=== PATIENT | female | born 1935 | race Two or more races ===

== ENCOUNTER 2017-01-27 14:38 | Inpatient (IN) | payer MEDICARE, BC, OTHER ==
[~2017-01-27] VITALS: Ht 154.9 cm; Wt 56.2 kg
[2017-02-05] MEDS ORDERED: METF500T PO (10:48)
[2017-02-05] MEDS ORDERED: PRIL20CA9 PO (10:48)
[2017-02-05] MEDS ORDERED: TEMA30CA PO (10:48)
[2017-02-05] MEDS ORDERED: GABA100C4 PO (10:48)
[2017-02-05] MEDS ORDERED: ALEN1TAB48 PO (10:48)
[2017-02-05] MEDS ORDERED: LOSA50TA PO (10:48)
[2017-02-05] MEDS ORDERED: COMB0.2S EACH EYE (10:48)
[2017-02-05] MEDS ORDERED: HYDR-3516 PO (10:48)
--- NOTE | 2017-02-18 23:44 | MH ---
cc: ANDREW OSMAN DATE OF ADMISSION: 02/19/2017 ADMITTING DIAGNOSIS: Lumbar spinal stenosis with instability. HISTORY OF PRESENT ILLNESS: This patient is an 81 year-old patient with significant back, hip and leg pain. Investigative study shows evidence of a high-grade stenosis at L4-L5 and significant foraminal stenosis to the right L5-S1. The patient developed weakness into the leg. There is evidence of instability at L4 5. We anticipate significant instability at L5-S1 related to the decompression. The patient now presents for laminectomy and fusion. Despite conservative care the patient is painful and symptomatic. This patient presents for surgical treatment. PAST MEDICAL HISTORY: See attached notes. SOCIAL HISTORY, FAMILY HISTORY, AND REVIEW OF SYSTEMS: See attached notes. PHYSICAL EXAMINATION: GENERAL: The patient is an 81 year-old female with significant back, hip and leg pain. HEENT: Normocephalic, atraumatic. Pupils equal, round, reactive to light and accommodation. Extraocular motions intact. NECK: Supple. CHEST: Clear. HEART: Regular rate and rhythm. ABDOMEN: Soft, nontender, normoactive bowel sounds. MUSCULOSKELETAL EXAMINATION: Thoracolumbar spine, restricted motion, pain with range of motion, straight leg raise positive on the right, negative on the left. Motor examination shows weakness in the right extensor hallucis longus. IMPRESSION: 1. Lumbar spinal stenosis L4-L5 and L5-S1. 2. Spondylolisthesis L4-L5. 3. Foraminal stenosis right L5-S1. 4. Herniated nucleus pulposus L5-S1, right, foraminal. 5. Anticipated instability L5-S1, status post decompression PLAN: Bilateral lumbar laminectomy L4-L5, lateral recess decompression, right laminectomy L5-S1, foraminal decompression, subtotal facet resection, posterior spinal fusion L4-S1, interbody cage, bone grafting. CONSENT: There are risks with surgery including infection, bleeding, loss of motion, continued pain, need for further surgery, neurologic or vascular injury, etc. The patient understands these issues and wishes to press on with surgery as outlined above. Andrew Osman MD [facility] [place] 11:18 PM /11:28 PM MTDFabien
[2017-02-19] MEDS ORDERED: ceFAZolin 2 GM PREMIX 50 ML IV SCH (08:15)
[2017-02-19] MEDS ORDERED: VANCOMYCIN 1000 MG/NS 250 ML (for <70 kg) IV SCH ×2 (08:15)
[2017-02-19] MEDS ORDERED: INSULIN HUMAN REGULAR 1,000 UNITS/10 ML VIAL SQ PRN (08:15)
[2017-02-19] MEDS ORDERED: METOPROLOL TARTRATE 25 MG TAB PO PRN (08:15)
[2017-02-19] MEDS: POVIDONE IODINE 7.5% SCRUB 118 ML BOTTLE TOP SCH (08:15)
[2017-02-19] MEDS: SODIUM CHLORID 0.9% 500 ML IV SCH ×2 (08:15→23:56)
[2017-02-19] MEDS: LACTATED RINGER'S 1000 ML IV SCH (08:20)
[2017-02-19 08:41] VITALS: BP 191/94; PULSE 70; RESP 16; TEMP 98.4; O2SAT 100
[2017-02-19] MEDS ORDERED: MIDAZOLAM HCL 2 MG/2 ML VIAL ONE (10:20)
[2017-02-19] MEDS ORDERED: FAMOTIDINE 20 MG/2 ML VIAL ONE (10:21)
[2017-02-19] MEDS ORDERED: fentaNYL CITRATE 250 MCG/5 ML AMP ONE (10:21)
[2017-02-19] MEDS ORDERED: GENTAMICIN SULFATE 80 MG/2 ML VIAL ONE (10:24)
[2017-02-19] MEDS ORDERED: ACETAMINOPHEN 1000 MG/100 ML VIAL IV ONE (10:45)
[2017-02-19] MEDS ORDERED: PROPOFOL 200 MG/20 ML AMP IV ONE (12:00)
[2017-02-19] MEDS ORDERED: ONDANSETRON HCL 4 MG/2 ML VIAL IV PUSH ONE (12:00)
[2017-02-19] MEDS ORDERED: PHENYLEPH/NS 1000 MCG/10 ML SYR IV ONE (12:00)
[2017-02-19] MEDS ORDERED: LACTATED RINGER'S 1000 ML INJ 1,000 ML IV ONE (12:00)
[2017-02-19] MEDS ORDERED: OXYC-392 PO (14:07)
--- NOTE | 2017-02-19 14:14 | PD.OP ---
cc: Bao Machuca MD Operative Report Date of Surgery: Feb 19, 2017 Preoperative Diagnosis: Lumbar spinal stenosis L4 5. Herniated nucleus pulposus L5-S1, right, foraminal. Right lumbosacral radiculopathy. Discogenic low back pain. Lumbar instability, L5-S1, status post lumbar decompression. Lumbar instability, L4 5, spondylolisthesis, grade 1 Postoperative Diagnosis: Same Procedure: Bilateral lumbar laminectomy from the right L4, L5, lateral recess decompression. Lumbar laminectomy from the right L5-S1, subtotal facet resection, foraminal decompression, resection foraminal herniated nucleus pulposus. Posterior spinal fusion, lateral transverse process technique L4 to S1. Posterior spinal segmental instrumentation, L4 to S1. Posterior lateral interbody fusion L4 5 and L5-S1. Placement of interbody cages, L4 5 and L5-S1. Major bone grafting of the lumbar spine Anesthesia: Gen. Surgeon: Bao Machuca Sash Assembler(s): BRANDON Boyd Operation and Findings: EBL: 200 ml NOTE: Sierra Boyd PA-C was present for the entire surgical procedure as my embroidery assistant. In my medical opinion her skill and care was necessary for proper management of this patient INDICATIONS: Patient is an 81-year-old female involved in a trauma. The patient sustained a disc herniation into the foramen to the right at L5-S1. The patient has significant right L5 nerve root compromise. Also, studies shows evidence of nerve root compression at the L4 5 level. There is a mild spondylosis instability at that level associated with a remarkable discogenic changes. The patient had exhausted conservative care including physical therapy , medications, time, epidural steroid injections and nerve root injections. She is failed almost a year conservative care. She now presents for surgical treatment. INSTRUMENTATION: Cage: Staxx, expandable. Screws: Sulco PROCEDURE: The patient brought to the operating room and anesthetized the supine position. The patient positioned prone on the Vance frame on the Jude table. All pressure points are protected. The back was scrubbed with alcohol followed by Hibiclens followed by ChloraPrep and draped sterilely and antibiotics were given within a routine time window. A timeout was done. Lateral radiographic images used to identify the proper level for the procedure. Compared care for the preoperative studies. Skin markings were made anticipating surgical treatment. A right paramedian incision was made. The lamina and facet joint was exposed. We used the proper retractor was positioned over this region. The microscope was rolled into the field for visualization. A high-speed bur was used to take the lamina down and doing a subtotal facet resection. The exiting and crossing nerve roots were completely decompressed. A total discectomy was accomplished. The disc space was prepared. All cartilaginous material from the disc space was removed. There was moderate instability of the facet joint. Translational instability was noted. The decompression was very satisfactory. A combination of demineralized bone matrix and Nucel stem cells were mixed together on the back table.. These were injected into the disc space. The cage was then placed according to gas operator's recommendation and deployed. Position was satisfactory. Additional bone graft was placed into the disc space. We moved to the L5-S1 level. A paramedian incision was made and a midline fascial incision was made. A dilating system was placed down to the interlaminar space and held provisionally to the side of the table. A high- speed bur under the microscope was used to perform a bilateral laminectomy from the that side. A lateral recess decompression bilaterally was accomplished. A subtotal facet resection was accomplished. The crossing and exiting nerve roots were completely decompressed. There was a significant disc herniation into the foramen to the right side. This was resected. The L5 nerve root compression was relieved. An annulotomy was performed. A total discectomy was accomplished. All of the disc was removed from the disc space. The disc was then prepared for a cage. The bone graft was placed into the disc space between the operative level. A a Staxx cage placed close to midline at that level. There was no complication. The alignment was satisfactory. No significant bleeding was encountered. The wound was irrigated copiously. The fascia was closed with interrupted 0 Vicryl suture. The outer edge of the facet joint was identified and prepared. Under fluoroscopic images, a bur was used to gain entrance into the pedicle followed by placement of a blunt probe, an awl and placement of proper length screws. Each screw was charged with electric current there are no abnormal potentials registered in either lower extremity. A proper length jason was fitted and attached and tightened according to gas operator's recommendation. The wound was irrigated copiously. Bone grafting was placed along the lateral gutter in the region of the transverse process across this level. This was closed in layers with #1 Vicryl, 2-0 Vicryl and running intradermal 3-0 Vicryl followed by Steri-Strips and benzoin. On the contralateral side a separate exposure was made. The outer edge of the facet joints were identified. A bur was used to gain entrance into the pedicle followed by placement of a probe and proper length screws. Each screw was charged with electric current and no abnormal potentials registered in either lower extremity. A proper length jason was attached and positioned appropriately and tightened according to gas operator's recommendations. The wound was irrigated copiously. Bone graft placed along the transverse process across this level. It was closed in layers using #1 Vicryl, 2-0 Vicryl and running intradermal 3-0 Vicryl followed by Steri-Strips and benzoin. Intraoperative radiographs were obtained. No complication was appreciated. The patient had a sterile dressing applied. The patient was awakened and taken to recovery room in satisfactory condition. FINDINGS: There was evidence of moderate instability at the L4 5 level with significant lateral recess stenosis. L5-S1 level there was a disc herniation into the foramen to the right side creating significant L5 nerve root compression. Final construct was very satisfactory. No complication was appreciated. Bao Machuca MD Feb 19, 2017 14:14
[2017-02-19] MEDS ORDERED: ALUMINUM/MAGNESIUM/SIMETH 30 ML CUP PO PRN (14:15)
[2017-02-19] MEDS ORDERED: oxyCODONE/ACETAMINOPHEN 5 MG/325 MG TAB PO PRN (14:15)
[2017-02-19] MEDS ORDERED: MORPHINE SULFATE 8 MG/ML INJ IV PUSH PRN (14:15)
[2017-02-19] MEDS: LACTATED RINGER'S 1000 ML INJ 1,000 ML IV SCH (14:15)
[2017-02-19] MEDS ORDERED: SOD PHOSPHATE/SOD BIPHOSPHATE (ADULT) ENEMA 133ML PR PRN (14:15)
[2017-02-19] MEDS ORDERED: SODIUM CHLORIDE 0.9% FLUSH 5 ML FLUSH IVF PRN (14:15)
[2017-02-19] MEDS ORDERED: MORPHINE SULFATE 30 MG/30 ML PCA IV SCH (14:15)
[2017-02-19] MEDS ORDERED: BISACODYL 10 MG SUPP PR PRN (14:15)
[2017-02-19] MEDS ORDERED: NALOXONE HCL 0.4 MG/ML AMP IV PRN (14:15)
[2017-02-19] MEDS ORDERED: Post-op Orders (for Pharmacy) MISC XX ONE (14:15)
[2017-02-19] MEDS ORDERED: DO NOT ADM ANY ANTICOAGULANT DRUGS XX PRN (14:30)
[2017-02-19] MEDS ORDERED: *morphine SULFATE 8 MG/ML PERIprocedure ONLY ONE ×2 (15:02→15:09)
[2017-02-19] MEDS ORDERED: WALKER WHEELS/F1 MIS (15:07)
[2017-02-19] MEDS ORDERED: MISC-163 (15:07)
--- NOTE | 2017-02-19 15:08 | HHI.FF ---
Face to Face Verification Diagnosis: (1) Lumbar spinal stenosis (2) Lumbar spine instability (3) Degeneration of intervertebral disc of lumbar region Physical Therapy Gait training, Safety evaluation, Transfer training, bed to chair S/P Spinal Fusion: Gait training with walker, Weight bearing as tolerated, No twisting of torso, No bending Additional Instructions PT 5 days/wk for 1 week. WBAT w walker. Out of bed w brace time lock expert for 10- 12 weeks. Gait training / transfers. Nursing RN Days per Week: 5 x Week(s): 1 Nursing: Dressing changes Dressing Changes: Daily dressing change, 4x4s, Coverderm/Primapore Additional Instructions RN 5 days/wk for 1 week. Dry dressing changes daily w 4x4 and coverderm. Vitals assessment. I have seen patient Javan Mejias on 02/19/17. My clinical findings support the need for the requested home health care services because: Limited ability to care for self High risk of falls I certify that my clinical findings support that this patient is homebound because: Post-op weakness Unsteady gait/balance Kaycee Mendes Feb 19, 2017 15:08
--- NOTE | 2017-02-19 17:07 | RADRPT ---
EXAM DATE/TIME: 02/19/2017 13:53 [facility] COMPARISON: No previous studies available for comparison. INDICATIONS : Lumbar fusion, L4-5. MEDICAL HISTORY : Unobtainable. SURGICAL HISTORY : Unobtainable. ENCOUNTER: Initial ACUITY: 1 day PAIN SCORE: Non-responsive. LOCATION: Lumbar. FINDINGS: Fusion hardware is noted within the lowest three lumbar type vertebral bodies and appears to be in go od position. CONCLUSION: Status post posterior lumbar fusion within the lower lumbar spine as described above. Travon Urbano MD on February 19, 2017 at 17:02 Board Certified Radiologist. This report was verified electronically.
[2017-02-19] MEDS ORDERED: *ONDANSETRON 4 MG VIAL PERIprocedural Use ONLY ONE (18:52)
[2017-02-19 20:25] VITALS: BP 119/66; PULSE 73; RESP 17; TEMP 95.9; O2SAT 100
[2017-02-19] MEDS ORDERED: ZOLPIDEM TARTRATE 5 MG TAB PO PRN (21:00)
[2017-02-19] MEDS ORDERED: TEMAZEPAM 15 MG CAP PO PRN (21:00)
[2017-02-19] MEDS: SODIUM CHLORIDE 0.9% FLUSH 5 ML FLUSH IVF SCH (21:00)
[2017-02-19] MEDS: TIMOLOL MALEATE 0.5% OPHT SOLN 5 ML BTL EACH EYE SCH (21:39)
[2017-02-19] MEDS: GABAPENTIN 100 MG CAP PO SCH (21:39)
[2017-02-19] MEDS: BRIMONIDINE TARTRATE 0.2% OPHT SOLN 5 ML BTL EACH EYE SCH (21:39)
[2017-02-19 22:08] VITALS: O2SAT 100
[2017-02-19] MEDS: PCA - TOTAL MG MORPHINE DELIVERED PER SHIFT SCH (22:38)
[2017-02-20] VITALS (7 sets, daily range): BP systolic 113–139; BP diastolic 57–69; PULSE 66–84; RESP 16–17; TEMP 96.9–98.6; O2SAT 84–100
[2017-02-20] MEDS: LACTATED RINGER'S 1000 ML INJ 1,000 ML IV SCH ×3 (02:19→20:40)
[2017-02-20] MEDS: ONDANSETRON HCL 4 MG/2 ML VIAL IV PRN ×2 (04:43→10:31)
[2017-02-20] MEDS: PCA - TOTAL MG MORPHINE DELIVERED PER SHIFT SCH (04:46)
[2017-02-20 05:36] LABS: HEMATOCRIT 29.1 % (35.0-46.0); REVIEW FLAG FINAL
--- NOTE | 2017-02-20 07:56 | HHI.DCPOC ---
Discharge Care Plan Diagnosis: (1) Lumbar spinal stenosis (2) Lumbar spine instability (3) Degeneration of intervertebral disc of lumbar region Your Health Problems Are: Incision/Drains Goals to Promote Your Health * To prevent worsening of your condition and complications * To maintain your health at the optimal level Directions to Meet Your Goals Take your medications as prescribed Follow your dietary instruction Follow activity as directed Keep your appointments as scheduled Take your immunizations and boosters as scheduled If your symptoms worsen call your PCP, if no PCP go to Urgent Care Center or Emergency Room Smoking is Dangerous to Your Health. Avoid second hand smoke Call the 24-hour hour crisis hotline for domestic abuse at Kaycee Mendes Feb 20, 2017 07:56
--- NOTE | 2017-02-20 07:57 | HHI.DS ---
Discharge Summary Admission Date Feb 19, 2017 at 07:34 Discharge Date: Feb 21, 2017 Admitting Diagnosis see below Diagnosis: (1) Lumbar spinal stenosis Diagnosis: Principal (2) Lumbar spine instability Diagnosis: Principal (3) Degeneration of intervertebral disc of lumbar region Diagnosis: Principal Procedures Lumbar laminectomy L45, L5S1, Posterior fusion L4-S1, interbody cages L45, L5S1 , bone graft Brief History This is a 81 year old female patient..right leg pain... CBC/BMP: 02/20/17 0448 02/20/17 0448 Significant Findings Laboratory Tests Test 02/20/17 04:48 Hemoglobin 9.6 GM/DL (11.6-15.3) Hematocrit 29.1 % (35.0-46.0) Estimat Glomerular Filtration 72 ML/MIN (>89) Rate Hospital Course Surgical treatment was performed on the day of admission without complication. She recovered well in PACU and was transferred to the orthopaedic floor. Pain was controlled with IV and oral medications. She was compliant with physical therapy, her lumbar brace and all restrictions. After 2 days she was found to be stable and discharged home with home health care. She was instructed to continue her lumbar brace for an additional 10-12 weeks, continue her pain medication as needed and to pursue a high fiber diet for 3-5 days postop. Pt Condition on Discharge: Stable Discharge Disposition: Disch w/ Home Health Serv Discharge Instructions Diet Instructions: Diabetic Diet, High Fiber Diet Activities You Can Perform: Weight Bearing as Bessie, See Additionl Instruction Activities to Avoid: Strenuous Activity Additional Activity Instruc.: Brace to lumbar spine when out of bed New Medications: 3-in-1 Bedside Toilet (3-in-1 Bedside Toilet) 1 Mis Mis 1 EA .ROUTE DIRECTED #1 EA Oxycodone (Oxycodone) 5 Mg Tab 5 MG PO Q4H PRN PAIN #50 Ref 0 TAB Walker with Front Wheels (Walker with Front Wheels) 1 Mis Mis 1 EA .ROUTE DIRECTED #1 Ref 0 EA Continued Medications: Alendronate (Alendronate) 70 Mg Tab 70 MG PO Q7D Osteporosis Treatment #4 Ref 0 TAB Brimonidine-Timolol Opth Drops (Combigan Opth Drops) 0.2-0.5% Soln 1 DROP EACH EYE Q12HR Glaucoma Ref 0 BOTTLE Gabapentin (Gabapentin) 100 Mg Cap 100 MG PO HS #30 Ref 0 CAP Hydrocodone-Acetaminophen (Hydrocodone-Acetaminophen) 5-325 mg Tab 1 TAB PO Q4H PRN PAIN Ref 0 TAB Losartan (Losartan) 50 Mg Tab 50 MG PO DAILY Blood Pressure Management #30 Ref 0 TAB Metformin (Metformin) 500 Mg Tab 500 MG PO BIDPC With meals Blood Sugar Management #60 Ref 0 TAB Omeprazole (Prilosec) 20 Mg Cap 20 MG PO DAILY #30 Ref 0 CAP Temazepam (Temazepam) 30 Mg Cap 30 MG PO HS PRN INSOMNIA #30 Ref 0 CAP Kaycee Mendes Feb 20, 2017 07:57
--- NOTE | 2017-02-20 07:58 | PD.ORT.PN ---
Subjective Subjective Remarks No significant complaints. No leg pain. Mild back pain Objective Vitals Vital Signs Date Time Temp Pulse Resp B/P Pulse Ox O2 Delivery O2 Flow Rate FiO2 02/20/17 04:46 18 02/20/17 04:25 96.9 69 17 115/66 100 02/20/17 00:30 97.5 66 17 113/60 98 02/19/17 22:38 18 02/19/17 22:08 100 Nasal Cannula 1.50 02/19/17 20:25 95.9 73 17 119/66 100 02/19/17 18:00 77 14 147/84 99 Nasal Cannula 2 02/19/17 17:00 70 14 92/50 99 Nasal Cannula 2 02/19/17 16:30 71 15 90/52 98 Nasal Cannula 2 02/19/17 16:00 98.2 68 15 89/54 95 Nasal Cannula 2 02/19/17 15:50 15 02/19/17 15:45 68 15 86/55 96 Nasal Cannula 2 02/19/17 15:30 69 10 84/53 95 Nasal Cannula 2 02/19/17 15:15 72 12 92/59 97 Nasal Cannula 2 02/19/17 15:00 80 14 121/76 97 Nasal Cannula 2 02/19/17 14:45 73 10 108/64 99 Nasal Cannula 3 02/19/17 14:35 97.8 80 10 99/59 96 Simple Mask 6 02/19/17 08:41 98.4 70 16 191/94 100 I/O 02/19/17 02/19/17 02/19/17 02/20/17 02/20/17 02/20/17 07:00 15:00 23:00 07:00 15:00 23:00 Intake Total 1300 ml 943 ml 609 ml Output Total 1100 ml 130 ml 275 ml Balance 200 ml 813 ml 334 ml Intake Oral 120 ml 60 ml IV Total 823 ml 549 ml Other 1300 ml Output Urine Total 900 ml 130 ml 275 ml Estimated Blood Loss 200 ml Result Diagram: 02/20/1744702/20/17447 Objective Remarks Dressings are dry. Motor examination 5/5. Sensation normal. No calf tenderness Assessment & Plan Ortho Post Op Day #: 1 Problem List: Assessment and Plan Lumbar spinal stenosis. Herniated nucleus pulposus, L5-S1 right, foraminal. Right lumbosacral radiculopathy. Laminectomy L4 5 and L5-S1, PSF L4 to S1, PLIF L4 to S1: POD #1 PLAN: Brace when out of bed Dry dressing change starting tomorrow, daily Discharge to home, probably Thursday Home healthcare and home physical therapy Oxycodone for pain Stable orthopedically Bao Machuca MD Feb 20, 2017 07:58
[2017-02-20] MEDS: POVIDONE IODINE 7.5% SCRUB 118 ML BOTTLE TOP SCH (08:15)
[2017-02-20] MEDS: LOSARTAN 50 MG TAB PO SCH (09:00)
[2017-02-20] MEDS: BRIMONIDINE TARTRATE 0.2% OPHT SOLN 5 ML BTL EACH EYE SCH ×2 (09:00→20:33)
[2017-02-20] MEDS: metFORMIN HCL 500 MG TAB PO SCH ×3 (09:00→20:33)
[2017-02-20] MEDS: TIMOLOL MALEATE 0.5% OPHT SOLN 5 ML BTL EACH EYE SCH ×2 (09:00→20:33)
[2017-02-20] MEDS: SODIUM CHLORIDE 0.9% FLUSH 5 ML FLUSH IVF SCH ×2 (09:00→20:34)
[2017-02-20] MEDS: LACTATED RINGER'S 1000 ML IV SCH (09:14)
[2017-02-20] MEDS: PANTOPRAZOLE SOD 20 MG DELAYED RELEASE TAB PO SCH (09:15)
[2017-02-20] MEDS: ACETAMINOPHEN/HYDROcodone 325 MG/5 MG TAB PO PRN ×2 (14:32→20:33)
[2017-02-20] MEDS: DOCUSATE SODIUM 100 MG CAP PO SCH (20:33)
[2017-02-20] MEDS: GABAPENTIN 100 MG CAP PO SCH (20:34)
[2017-02-21 00:15] VITALS: BP 95/62; PULSE 74; RESP 16; TEMP 98.6; O2SAT 96
[2017-02-21 00:20] VITALS: BP 110/62
[2017-02-21] MEDS: ACETAMINOPHEN/HYDROcodone 325 MG/5 MG TAB PO PRN ×2 (02:18→08:18)
[2017-02-21 04:25] VITALS: BP 93/54; PULSE 77; RESP 16; TEMP 97.4; O2SAT 95
[2017-02-21] MEDS: POVIDONE IODINE 7.5% SCRUB 118 ML BOTTLE TOP SCH (04:26)
[2017-02-21] MEDS: LACTATED RINGER'S 1000 ML IV SCH (04:26)
--- NOTE | 2017-02-21 07:10 | PD.ORT.PN ---
Subjective Subjective Remarks Progressing well with physical therapy is able to ambulate Objective Vitals Vital Signs Date Time Temp Pulse Resp B/P Pulse Ox O2 Delivery O2 Flow Rate FiO2 02/21/17 04:25 97.4 77 16 93/54 95 02/21/17 00:20 110/62 02/21/17 00:15 98.6 74 16 95/62 96 02/20/17 20:20 98.6 84 17 123/57 84 02/20/17 14:20 96.9 78 16 122/69 98 02/20/17 12:25 97.7 72 16 130/66 96 02/20/17 09:30 98 21 02/20/17 08:10 97.5 74 16 139/63 97 I/O 02/20/17 02/20/17 02/20/17 02/21/17 02/21/17 02/21/17 07:00 15:00 23:00 07:00 15:00 23:00 Intake Total 609 ml 1100 ml 120 ml Output Total 275 ml 250 ml 200 ml Balance 334 ml -250 ml 900 ml 120 ml Intake Oral 60 ml 1100 ml 120 ml IV Total 549 ml Output Urine Total 275 ml 250 ml 200 ml # Voids 3 # Bowel Movements 0 0 Result Diagram: 02/20/17 0448 02/20/17 0448 Procedures Lumbar laminectomy L45, L5S1, Posterior fusion L4-S1, interbody cages L45, L5S1 , bone graft Objective Remarks Dressings are dry. Motor examination 5/5. Sensation normal. No calf tenderness Assessment & Plan Problem List: (1) Lumbar spinal stenosis (2) Lumbar spine instability (3) Degeneration of intervertebral disc of lumbar region Assessment and Plan Lumbar spinal stenosis. Herniated nucleus pulposus, L5-S1 right, foraminal. Right lumbosacral radiculopathy. Laminectomy L4 5 and L5-S1, PSF L4 to S1, PLIF L4 to S1: POD #1 PLAN: Brace when out of bed Dry dressing change starting tomorrow, daily Discharge to home today Home healthcare and home physical therapy Oxycodone for pain Stable orthopedically Allan Rodriguez Jr. Feb 21, 2017 07:10
[2017-02-21 08:00] VITALS: BP 96/52; PULSE 94; RESP 17; TEMP 99.2; O2SAT 93
[2017-02-21] MEDS: PANTOPRAZOLE SOD 20 MG DELAYED RELEASE TAB PO SCH (08:18)
[2017-02-21] MEDS: SODIUM CHLORIDE 0.9% FLUSH 5 ML FLUSH IVF SCH (08:18)
[2017-02-21] MEDS: DOCUSATE SODIUM 100 MG CAP PO SCH (08:19)
[2017-02-21] MEDS: TIMOLOL MALEATE 0.5% OPHT SOLN 5 ML BTL EACH EYE SCH (08:20)
[2017-02-21] MEDS: LOSARTAN 50 MG TAB PO SCH (08:20)
[2017-02-21] MEDS: BRIMONIDINE TARTRATE 0.2% OPHT SOLN 5 ML BTL EACH EYE SCH (08:20)
[2017-02-21] MEDS: metFORMIN HCL 500 MG TAB PO SCH (08:21)
== END 2017-02-21 11:24 | disposition home health service (06) | DRG 460 ==
LOC: HSDI 02-19 07:34 → EDUNIT# 02-19 09:00 → N06B 02-19 19:07
PROVIDERS: ADMIT Orthopaedic Surgery Orthopaedic Surgery of the Spine; ATTEND Orthopaedic Surgery Orthopaedic Surgery of the Spine
PROC: 0ST40ZZ Resection of Lumbosacral Disc, Open Approach (ICD-10-PCS; 2017-02-19)
PROC: 0QB30ZZ Excision of Left Pelvic Bone, Open Approach (ICD-10-PCS; 2017-02-19)
PROC: 0SG30AJ Fusion of Lumbosacral Joint with Interbody Fusion Device, Posterior Approach, Anterior Column, Open Approach (ICD-10-PCS; principal; 2017-02-19 10:30)
DX: M48.06 Spinal stenosis, lumbar region (principal); M53.2X6 Spinal instabilities, lumbar region; M51.26 Other intervertebral disc displacement, lumbar region; M51.17 Intervertebral disc disorders with radiculopathy, lumbosacral region
CPT/HCPCS: 72100; 76000; 82565; 85014; 85018; 86850; 86900; 86901; 94150; C1713; J0131; J0690; J1580; J2250; J2270; J2370; J2405; J3010; J3370; J7050; J7120

== ENCOUNTER → 2017-02-05 | Outpatient (CLI) | payer MEDICARE, BC, OTHER ==
[~2017-02-05] MED LIST: ALEN1TAB48 PO; COMB0.2S EACH EYE; GABA100C4 PO; HYDR-3516 PO; LOSA50TA PO; METF500T PO; MISC-163; OXYC-392 PO; PRIL20CA9 PO; TEMA30CA PO; WALKER WHEELS/F1 MIS
[2017-02-05 10:34] LABS: AUTOMATED NEUTROPHIL # 4.2 TH/MM3 (1.8-7.7); BASOPHIL % 0.6 % (0.0-2.0); EOSINOPHIL % 0.6 % (0.0-4.0); HEMATOCRIT 36.1 % (35.0-46.0); HEMO FLAGS DIFF FINAL; LYMPH % 26.9 % (9.0-44.0); LYMPHOCYTE # 1.7 TH/MM3 (1.0-4.8); MEAN CELL VOLUME 97.1 FL (80.0-100.0); MONO % 5.5 % (0.0-8.0); NEUT % 66.4 % (16.0-70.0); PLATELET COUNT 197 TH/MM3 (150-450); RED BLOOD COUNT 3.72 MIL/MM3 (4.00-5.30); RED CELL DISTRIBUTION WIDTH 13.2 % (11.6-17.2); WHITE BLOOD COUNT 6.3 TH/MM3 (4.0-11.0)
[2017-02-05 10:40] LABS: APTT (PATIENT) 24.3 SEC (24.3-30.1); INTERNATIONAL NORMALIZED RATIO 0.9 RATIO; PROTHROMBIN TIME - PATIENT 10.1 SEC (9.8-11.6)
[2017-02-05 10:50] LABS: BLOOD, URINE NEG (NEG); COMMENT (UR) CATH-CULT NOT IND; CULTURE IF INDICATED CATH CULTURE NOT IND; GLUCOSE,URINE NEG (NEG); HYALINE CAST, URINE 3 /lpf (RARE); KETONE, URINE NEG (NEG); MUCUS URINE MANY /lpf (OCC); NITRITE,URINE NEG (NEG); PH, URINE 5.5 (5.0-8.5); SQUAMOUS EPITHELIAL CELL URINE <1 /hpf (0-5); URINE COLOR YELLOW (YELLW/STRAW)
--- NOTE | 2017-02-06 20:21 | EKG ---
Date Performed: 02/05/2017 Time Performed: 10:24:34 PTAGE: 81 years EKG: Sinus rhythm Nonspecific ST and T wave abnormalities NO PREVIOUS TRACING DOCTOR: Gilberto Monson Interpretating Date/Time 02/06/2017 20:19:52
== END ==
LOC: CPRE 09:41
PROVIDERS: ATTEND Orthopaedic Surgery Orthopaedic Surgery of the Spine
DX: Z01.810 Encounter for preprocedural cardiovascular examination (principal); Z01.812 Encounter for preprocedural laboratory examination; Z01.818 Encounter for other preprocedural examination; Z79.01 Long term (current) use of anticoagulants; M48.06 Spinal stenosis, lumbar region; M96.1 Postlaminectomy syndrome, not elsewhere classified; M53.2X6 Spinal instabilities, lumbar region
CPT/HCPCS: 36415; 81001; 85025; 85610; 85730; 93005